=== PATIENT | male | born 1990 | race Caucasian/White ===

== ENCOUNTER → 2016-07-13 | Outpatient (CLI) | payer BC, MEDICAID ==
[2016-07-13 09:33] LABS: CHLAM PCR NOT DETECTED (NOT DETECT)
[2016-07-18 07:23] LABS: HSV SOURCE VESICULAR FLUID
[2016-07-19 14:41] LABS: HSV I DNA Negative (Negative)
== END ==
LOC: OD 07:53
PROVIDERS: ATTEND Nurse Practitioner Acute Care
DX: N48.9 Disorder of penis, unspecified (principal); Z20.2 Contact with and (suspected) exposure to infections with a predominantly sexual mode of transmission
CPT/HCPCS: 36415; 86695; 86696; 87491; 87529; 87591

== ENCOUNTER → 2016-07-13 | Outpatient (CLI) | payer BC | LOC: OD 07:51 | PROVIDERS: ATTEND Nurse Practitioner Acute Care | DX: Z53.9 Procedure and treatment not carried out, unspecified reason (principal) ==

== ENCOUNTER 2019-08-18 19:13 | Emergency (ER) | payer MEDICAID, OTHER ==
--- NOTE | 2019-08-18 20:58 | ER Document Report ---
ED Respiratory Problem - General Chief Complaint: Shortness Of Breath Stated Complaint: SHORTNESS OF BREATH Time Seen by Provider: 08/18/19 20:31 Primary Care Provider: HAILEY JEONG MD [Primary Care Provider] - Follow up as needed Notes: Patient is a 29-year-old male that comes emergency department for chief complaint of sudden onset of discomfort starting in his left mid to upper back and wrapping around to his chest on the left side in the front. He states that since it started this afternoon he has had continuous discomfort feelings and occasional sharp pain. He feels some vague shortness of breath. He denies dizziness, nausea, vomiting, abdominal pain, passing out, injury. He does smoke occasionally, he states he has had a left-sided pneumothorax that was treated with a chest tube in 2016, this was spontaneous (nontraumatic). He denies any daily medications, recreational drugs, alcohol, or any other past medical history. He denies any other complaints including fever, recent illness, congestion, sore throat, cough. TRAVEL OUTSIDE OF THE [place] IN LAST 30 DAYS: No - Related Data Allergies/Adverse Reactions: amoxicillin [Amoxicillin] Allergy (Verified 05/29/13 10:52) Past Medical History - General Information source: Patient - Social History Smoking Status: Current Every Day Smoker Smoking Education Provided: Yes - <3 min Frequency of alcohol use: None Drug Abuse: None Lives with: Family Family History: Reviewed & Not Pertinent Pulmonary Medical History: Reports: Other - Left-sided pneumothorax Past Surgical History: Reports: Hx Appendectomy - Immunizations Hx Diphtheria, Pertussis, Tetanus Vaccination: Yes Review of Systems - Review of Systems Constitutional: No symptoms reported EENT: No symptoms reported Cardiovascular: No symptoms reported Respiratory: See HPI Gastrointestinal: No symptoms reported Genitourinary: No symptoms reported Male Genitourinary: No symptoms reported Musculoskeletal: See HPI Skin: No symptoms reported Hematologic/Lymphatic: No symptoms reported Neurological/Psychological: No symptoms reported Physical Exam - Vital signs Vitals: Temp Pulse Resp BP Pulse Ox 98.5 F 84 20 107/71 100 08/18/19 19:40 08/18/19 19:40 08/18/19 19:40 08/18/19 19:40 08/18/19 19:40 - Notes Notes: GENERAL: Patient appears anxious but does not appear to be in distress HEAD: Normocephalic, atraumatic. EYES: Pupils equal, round, and reactive to light. Extraocular movements intact. ENT: Oral mucosa moist, tongue midline. Oropharynx unremarkable. Airway patent. NECK: Full range of motion. Supple. Trachea midline. No lymphadenopathy. LUNGS: Clear to auscultation bilaterally, no wheezes, rales, or rhonchi. No respiratory distress. Patient does have some tenderness along the left upper back and along the left mid anterior chest wall. No erythema, crepitus, or severe tenderness noted, no swelling. HEART: Regular rate and rhythm. No murmur ABDOMEN: Soft, non-tender. Non-distended. EXTREMITIES: Moves all 4 extremities spontaneously. No edema, normal radial and dorsalis pedis pulses bilaterally. No cyanosis. BACK: no cervical, thoracic, lumbar midline tenderness. No saddle anesthesia, normal distal neurovascular exam. Moves all extremities in full range of motion. NEUROLOGICAL: Alert and oriented x3. Normal speech. Cranial nerves II through XII grossly intact. Strength 5/5 in all extremities. PSYCH: Anxious, speaks rapidly SKIN: Warm, dry, normal turgor. No rashes or lesions noted. Course - Re-evaluation Re-evalutation: Chest x-ray was performed which shows no pneumothorax. On my auscultation lungs are clear with good equal sounds bilaterally. Pulse ox is 100% on room air. Patient is not tachycardic. Patient also has pain on palpation of the chest wall. EKG nonischemic and unremarkable. I discussed results in details with patient, he is very relieved, he declines any medications for this, states he will take [id number] medication. Patient with no additional complaints, I did discuss return precautions in detail, patient states understanding and agreement. Stable and well-appearing at time of discharge. - Vital Signs Vital signs: Temp Pulse Resp BP Pulse Ox 98.1 F 71 16 108/79 100 08/18/19 22:09 08/18/19 22:09 08/18/19 22:09 08/18/19 22:09 08/18/19 22:09 Discharge - Discharge Clinical Impression: Upper back pain on left side, Left-sided chest pain, Chest wall pain Condition: Stable Disposition: HOME, SELF-CARE Additional Instructions: Your lung exam, chest x-ray, EKG, and overall evaluation is reassuring. No pneumothorax is seen at this time. This appears to be her chest wall, I recommend heat to the area, [id number] anti-inflammatory such as ibuprofen, plenty of fluids, and rest. Follow-up with primary care. Return if you worsen including difficulty breathing, severe worsening pain, passing out, or any other concerning symptoms. Referrals: HAILEY JEONG MD [Primary Care Provider] - Follow up as needed
--- NOTE | 2019-08-18 21:36 | RADIOLOGY REPORT (SQ) ---
XR CHEST 1 VIEW HISTORY: Shortness of breath. Evaluate for pneumothorax. COMPARISON: None. FINDINGS: The heart size is within normal limits. There is no pulmonary vascular congestion. No consolidation, pleural effusion, or pneumothorax is seen. There is surgical sutures in the left upper lung zone. The bony structures are preserved. IMPRESSION: No evidence of pneumothorax.
[2019-08-18 22:12] VITALS: BP 108/79
--- NOTE | 2019-08-19 00:26 | EKG REPORT ---
SEVERITY:- NORMAL ECG - SINUS RHYTHM : Confirmed by: Jenni Jiang 19-Aug-2019 00:24:59
== END 2019-08-18 22:14 | disposition home or self-care (01) ==
LOC: ER 19:13
DX: M54.6 Pain in thoracic spine (principal); R07.89 Other chest pain; R06.02 Shortness of breath; M54.9 Dorsalgia, unspecified; F17.200 Nicotine dependence, unspecified, uncomplicated; Z88.0 Allergy status to penicillin
CPT/HCPCS: 71045; 93005; 93010; 99285